=== PATIENT | female | born 1930 | race Caucasian/White ===

== ENCOUNTER 2018-01-27 13:52 | Inpatient (IN) | payer OTHER, MEDICARE ==
[~2018-01-27] VITALS: Ht 167.6 cm; Wt 63.6 kg
[~2018-01-27 13:52] MED LIST: FLUOXETINE HCL40 M1 PO; OXYCODONE HCL5 M1 PO; TRAZODONE HCL50 M1 PO; VESICARE5 M1 PO; XARELTO20 M2 PO
--- NOTE | 2018-01-27 14:38 | ED MVC/FALL/TRAUMA COMPLAINT ---
See Addendum History of Present Illness General Chief Complaint: General Adult Stated Complaint: BIBA MULTI COMPLIANTS Source: patient Exam Limitations: no limitations Allergies Coded Allergies: NO KNOWN ALLERGIES (06/03/12) Reconcile Medications Fluoxetine HCl 40 MG CAPSULE 1 CAP PO QAM MENTAL HEALTH (Reported) Oxycodone HCl 5 MG TABLET 1 TAB PO BIDP PRN PAIN (Reported) Rivaroxaban (Xarelto) 20 MG TABLET 1 TAB PO QPM BLOOD THINNER (Reported) with food Solifenacin Succinate (Vesicare) 5 MG TABLET 1 TAB PO DAILY BLADDER (Reported ) Trazodone HCl 50 MG TABLET 2 TAB PO QPM SLEEP (Reported) Triage Nurses Notes Reviewed? yes Onset: Abrupt Duration: hour(s): Timing: single episode today Severity: mild, moderate Injuries/Fall Location: lower extremity Method of Injury: fall Loss of Consciousness: unsure No Modifying Factors: none LMP (ages 10-50): post menopausal : No Patient currently breastfeeds: No HPI: 87-year-old female past medical history of atrial fibrillation on anticoagulation, chronic back pain presents for evaluation after a fall. Patient states that she got up from bed today and that her knees became very weak causing her to fall. She is unsure if she lost conscious. She landed on the ground. She is unable to get up. She reports pain in her left foot and ankle. She had her life alert button. When EMS arrived she was found on the ground by her bed. No chest pain or shortness of breath. No nausea vomiting sweats or chills no dizziness or lightheadedness no changes in vision. No fevers. She lives at home by herself. She normally is able to ambulate on her own. (Burt Alvarez) Vital Signs & Intake/Output Vital Signs & Intake/Output Vital Signs Date Time Temp Pulse Resp B/P B/P Pulse O2 O2 Flow FiO2 Mean Ox Delivery Rate 01/27 2206 98.0 66 16 106/51 95 Room Air 01/28 2008 103 101/62 01/28 2008 103 16 101/62 94 Room Air 01/27 1812 122 107/66 01/27 1703 98.4 122 18 107/66 96 Room Air 01/27 1509 Room Air 01/27 1415 99.3 105 22 118/73 94 Room Air (Genoveva FRANZ,Gareth Araujo) Past History Medical History Any Pertinent Medical History? see below for history Cardiovascular: AFIB Musculoskeletal: SPINE FX History of MRSA: No History of VRE: No History of CDIFF: No Surgical History Surgical History: non-contributory Psychosocial History Who do you live with Spouse Services at Home None What is your primary language Spanish Family History Hx Contributory? No (Burt Alvarez) Review of Systems Review of Systems Constitutional: Reports: no symptoms. Eyes: Reports: no symptoms. Ears, Nose, Throat, Mouth: Reports: no symptoms. Respiratory: Reports: no symptoms. Cardiovascular: Reports: no symptoms. Gastrointestinal/Abdominal: Reports: no symptoms. Genitourinary: Reports: no symptoms. Musculoskeletal: Reports: joint pain, joint swelling. Skin: Reports: no symptoms. Neurological/Psychological: Reports: no symptoms. All Other Systems: Reviewed and Negative (Burt Alvarez) Physical Exam Physical Exam General Appearance: well developed/nourished, no apparent distress, alert, awake Head: atraumatic, normal appearance Eyes: Bilateral: normal appearance, PERRL, EOMI, normal inspection. Ears, Nose, Throat, Mouth: hearing grossly normal, moist mucous membrane, Tympanic normal Neck: normal inspection, supple, full range of motion Respiratory: normal breath sounds, chest non-tender, no respiratory distress, lungs clear Cardiovascular: regular rate/rhythm, normal peripheral pulses Peripheral Pulses: 2+ radial (R), 2+ radial (L), 2+ tibialis posterior (R), 2+ tibialis posterior ( L), 2+ dorsalis pedis (R), 2+ dorsalis pedis (L) Gastrointestinal: normal bowel sounds, soft, non-tender, no organomegaly Back: normal inspection, normal range of motion, no vertebral tenderness Extremities: normal range of motion, TTHERE IS TENDERNESS PALPATION OF THE DORSUM OF THE LEFT FOOT AND LATERAL ASPECT OF THE LEFT ANKLE. nO SOFT TISSUE SWELLING NO BRUISING OR ABRASIONS. nEUROVASCULAR SUPPLY INTACT Neurologic/Psych: no motor/sensory deficits, awake, alert, oriented x 3, normal gait Skin: intact, normal color, warm/dry Core Measures ACS in differential dx? Yes CVA/TIA Diagnosis No Sepsis Present: No Sepsis Focused Exam Completed? No (Burt Alvarez) Progress Differential Diagnosis: C/T/L spine injury, ext injury, spinal cord injury Diagnostic Imaging: Viewed by Me: Radiology Read, CT Scan. Discussed w/RAD: Radiology Read, CT Scan. Radiology Impression: PATIENT: DANNA MADRID PRESENT AGE: 87 PATIENT ACCOUNT NO: [id number] : [birth year] LOCATION: [facility] ORDERING PHYSICIAN: Burt BROOKS SERVICE DATE: 01/27/18 EXAM TYPE: CAT - CT CERV SPINE WO IV CONTRAST; CT HEAD WO IV CONTRAST EXAMINATION: CT HEAD WITHOUT CONTRAST CT CERVICAL SPINE WITHOUT CONTRAST CLINICAL INFORMATION: Trauma. Fall with unknown head strike. COMPARISON: None TECHNIQUE: CT of the head and cervical spine were performed without intravenous contrast. Multiplanar reformats were rendered and reviewed. DLP: 888 mGy-cm. FINDINGS: CT head: There is no intracranial hemorrhage, extra-axial collection, or calvarial fracture. There is no mass, mass effect, or CT evidence of large territory infarction. There is mild scattered hypoattenuation in the bilateral cerebral white matter, which is nonspecific but likely reflects small vessel disease. There is mild diffuse brain parenchymal volume loss with prominence of the ventricles and sulci. The visualized paranasal sinuses are clear. The mastoids and middle ear cavities are clear. CT cervical spine: There is grade 1 anterolisthesis of C2 on C3 with alignment otherwise maintained. The craniovertebral junction is intact. No cervical spine fracture is seen. There is multilevel intervertebral disc height loss, endplate spurring, and uncovertebral and facet arthropathy. Disc height loss is greatest at C4-C5, C5-C6, and C6-C7. There is a prominent disc osteophyte complex at C5-C6 which results in mild spinal canal stenosis. There is severe neural foraminal stenosis on the left at C4-C5 and on the right at C5- C6 with lesser stenosis present at additional levels. There is pleural- parenchymal thickening at the bilateral lung apices and mild interlobular septal thickening. There is no consolidation or mass. There is scattered air within the venous circulation which is likely related to venipuncture. The extraspinal soft tissues are within normal limits. IMPRESSION: CT head: No acute intracranial abnormality. CT cervical spine: No cervical spine fracture, malalignment. Multilevel degenerative spondylotic changes as above. DICTATED BY: Shantanu Devi MD DATE/TIME DICTATED:01/27/181508 HEAD START TEACHER:GIA DATE/TIME TRANSCRIBED:01/27/181508 CONFIDENTIAL, DO NOT COPY WITHOUT APPROPRIATE AUTHORIZATION. <Electronically signed in Other Vendor System> SIGNED BY: Shantanu Devi MD 01/27/181523, PATIENT: DANNA MADRID PRESENT AGE: 87 PATIENT ACCOUNT NO: [id number] : [birth year] LOCATION: [facility] ORDERING PHYSICIAN: Burt BROOKS SERVICE DATE: 01/27/18 EXAM TYPE: RAD - XRY-FOOT COMPLETE, LEFT; XRY-TWO VIEW LEFT ANKLE EXAMINATION: LEFT FOOT AND ANKLE RADIOGRAPHS CLINICAL INFORMATION: 87-year-old woman with pain post fall. COMPARISON: 07/28/2016 radiographs TECHNIQUE: 2 views of the ankle and 3 views of the foot were obtained. FINDINGS: Ankle: There is no evidence of acute fracture. Alignment remains anatomic. Foot: There is no evidence of acute fracture. Alignment remains anatomic. There is degenerative chronic loss of normal articular cartilage space at the second through fifth PIP and DIP joints. IMPRESSION: No evidence of acute fracture or dislocation involving the left ankle or foot. DICTATED BY: Adele Andres MD DATE/TIME DICTATED:01/27/181520 HEAD START TEACHER:GIA DATE/TIME TRANSCRIBED:01/27/181520 CONFIDENTIAL, DO NOT COPY WITHOUT APPROPRIATE AUTHORIZATION. <Electronically signed in Other Vendor System> SIGNED BY: Adele Andres MD 01/27/181526, PATIENT: DANNA MADRID PRESENT AGE: 87 PATIENT ACCOUNT NO: [id number] : [birth year] LOCATION: [facility] ORDERING PHYSICIAN: Burt BROOKS SERVICE DATE: 01/27/18 EXAM TYPE: CAT - CT ABD & PELVIS W/O IV CONTRAS; CT CHEST WO IV CONTRAST EXAMINATION: CT ABDOMEN AND PELVIS WITHOUT CONTRAST CLINICAL INFORMATION: Fall with thoracic back pain. COMPARISON: CT of the abdomen and pelvis 05/07/2014. TECHNIQUE: Multidetector volumetric imaging was performed from the superior aspect of the liver through the pubic symphysis. Sagittal and coronal reformatted images were obtained on the technologist's workstation. DLP: 353 mGy-cm FINDINGS: LUNG/PLEURA: The central airways are patent. There is no consolidation or mass. No suspicious pulmonary nodules are seen. There is pleural-parenchymal thickening at the lung apices. No pleural effusion or pneumothorax. There are chronic interstitial changes in the right upper lobe and right middle lobe noting bronchiolectasis and prominent interstitial markings. There is subsegmental atelectasis at both lung bases and mild lower lobe bronchiolectasis. A few nonspecific scattered groundglass opacities are also noted. MEDIASTINUM: The heart is mildly enlarged. No suspicious hilar or mediastinal lymphadenopathy. CHEST WALL/AXILLA: Unremarkable. LIVER, GALLBLADDER , AND BILIARY TREE: The liver is normal in size, shape, and attenuation. No focal hepatic lesion or biliary ductal dilatation is present. Gallbladder is contracted. No inflammatory pericholecystic changes are seen. PANCREAS: Unremarkable. SPLEEN: Unremarkable. ADRENAL GLANDS: Unremarkable. KIDNEYS AND URETERS: The kidneys are normal in size, shape, and attenuation. The previously suspected renal cysts are not well defined. No hydronephrosis, hydroureter, or calculi seen. No perinephric stranding. BLADDER: Unremarkable. GASTROINTESTINAL TRACT: The small and large bowel are unremarkable. The appendix is not well seen but there are no inflammatory changes in the right lower quadrant. ABDOMINAL WALL: There is a small fat and bowel-containing [place] ventral abdominal hernia. There is a surgical scar in the midline ventral abdomen. LYMPH NODES: Normal. VASCULAR: Atheromatous changes in the abdominal aorta and its branch vessels. There are surgical clips in the right periaortic region. And in the right inguinal region. PELVIC VISCERA: Status post hysterectomy. No pelvic mass. OSSEOUS STRUCTURES: There is a chronic appearing severe compression fracture at T9 with greater than 80% height loss and mild retropulsion of the osseous cortex causing mild encroachment on the spinal canal. There is a vacuum disc at the levels above and below the fracture at T8-T9 and T9-T10. An additional chronic appearing compression fracture is present at T12 with 60% height loss and mild retropulsion causing mild encroachment on the spinal canal. No acute appearing compression fracture is seen in the thoracic or lumbar spine. There is a healed right sided lateral fifth rib fracture. IMPRESSION: - No acute thoracic spine fracture. - Chronic appearing fracture at T9 with greater than 80% height loss and at T12 with 60% height loss. There is mild retropulsion at both levels causing mild encroachment on the spinal canal. - No acute traumatic abnormality in the chest, abdomen, or pelvis. DICTATED BY: Shantanu Devi MD DATE/TIME DICTATED:01/27/181519 HEAD START TEACHER:GIA DATE/TIME TRANSCRIBED:1519 CONFIDENTIAL, DO NOT COPY WITHOUT APPROPRIATE AUTHORIZATION. < Electronically signed in Other Vendor System> SIGNED BY: Shantanu Devi MD 01/27/18 1536 Initial ED EKG: AFIB (rate 125, pvcs), borderline t wave abn ant-leads (Ryan BROOKS,Burt) Plan of Care: Orders Procedure Date/time Status Regular Diet 01/28 B Active CBC WITHOUT DIFFERENTIAL 01/28 06 Active BASIC ELECTROLYTES PLUS BUN&CR 01/28 06 Active PT Evaluate & Treat 01/28 2140 Active Pathway - chart 01/28 2140 Active House Staff 01/27 214 Active Add-on Test (ER Only) 01/27 2114 Active OXYGEN SETUP (GEN) 01/27 1929 Active Saline Lock 01/27 1929 Active Admit to inpatient 01/27 192 Active Vital Signs 01/27 192 Active Activity/Ambulation 01/27 192 Active Code Status 01/27 192 Active Add-on Test (ER Only) 01/27 192 Active Intake & Output 01/27 1910 Active TROPONIN LEVEL 01/27 1820 Complete EKG 01/27 1820 Active BLOOD CULTURE 01/27 1818 Active Add-on Test (ER Only) 01/27 1753 Active Add-on Test (ER Only) 01/27 1751 Active CASE MANAGEMENT CONSULT 01/27 1748 Active Add-on Test (ER Only) 01/27 1722 Active CULTURE,URINE 01/27 1715 Active Patient Data 01/27 1644 Active Telemetry/Vice President Quality Assurance 01/27 1606 Active TSH REFLEX 01/27 1425 Complete MAGNESIUM 01/27 1425 Complete D-DIMER 01/27 1425 Complete CREATINE PHOSPHOKINASE 01/27 1425 Complete B-TYPE NATRIURETIC PEP (BNP) 01/27 1425 Complete URINALYSIS 01/27 1414 Complete TROPONIN LEVEL 01/27 1414 Complete COMPREHENSIVE METABOLIC PANEL 01/27 1414 Complete CBC WITHOUT DIFFERENTIAL 01/27 1414 Complete EKG 01/27 1406 Active VTE Mechanical Prophylaxis 01/27 UNK Active NIH Stroke Scale 01/27 UNK Active Intake & Output 01/27 UNK Active Laboratory Tests 01/27/18 1815: Troponin I 0.02 01/27/18 171: Urine Color YEL, Urine Clarity CLEAR, Urine pH 6.5, Ur Specific [place] 1.020, Urine Protein TRACE H, Urine Ketones NEG, Urine Nitrite NEG, Urine Bilirubin NEG, Urine Urobilinogen 1.0, Ur Leukocyte Esterase TRACE H, Ur Microscopic SEDIMENT EXAMINED, Urine WBC 10-15 H, Ur Epithelial Cells FEW, Urine Bacteria FEW H, Urine Mucus MANY H, Urine Hemoglobin NEG, Urine Glucose NEG 01/27/18 1425: Anion Gap 12, Estimated GFR > 60, BUN/Creatinine Ratio 30.0 H, Glucose 111 H, Calcium 8.9, Magnesium 1.9, Total Bilirubin 1.4 H, AST 22, ALT 22, Alkaline Phosphatase 69, Creatine Kinase < 20 L, Troponin I 0.03, Qfv-[id number]-Kmwornanjsr Pept 5000 H, Total Protein 6.4, Albumin 3.7, Globulin 2.7, Albumin/Globulin Ratio 1.4, TSH &T3 &Free T4 Intrp 1.130, D-Dimer High Sensitivty 1747 H, CBC w Diff MAN DIFF ORDERED, RBC 4.22, MCV 98.7, MCH 32.2 H, MCHC 32.7 L, RDW 20.8 H, MPV 7.9, Gran % 82.0 H, Lymphocytes % 11.4 L, Monocytes % 6.2, Eosinophils % 0 , Basophils % 0.4, Absolute Granulocytes 11.0 H, Segmented Neutrophils 72, Band Neutrophils 7 H, Absolute Lymphocytes 1.5, Lymphocytes 11 L, Monocytes 10 H, Absolute Monocytes 0.8 H, Absolute Eosinophils 0, Absolute Basophils 0.1, Platelet Estimate INCREASED, Polychromasia 1+, Basophilic Stippling 1+, Anisocytosis 2+, Stomatocytes 1+ Microbiology 01/27 1905 BLOOD: Blood Culture - RECD 01/27 1855 BLOOD: Blood Culture - RECD 01/27 171 URINE ROUT: Urine Culture - RECD Patient seen and evaluated. She is here after a fall. Her legs became weak when she got out of bed causing her to fall to the ground. She is anticoagulated. We'll check CT scan of the head neck chest abdomen pelvis. Also check x-rays of the left foot and ankle. Patient is tachycardic to the low 100s in H of fibrillation. She is antegrade related but is not rate controlled. She does not have any medications that she uses for her rate control. She is not seen a roof bolter operator in years according to family. Metoprolol 25 mg by mouth Ordered. CT scan does not show any acute trauma. X-rays negative for fracture. Patient was admitted in the emergency department and did not have a steady gait. She is able to walk on her own without any difficulty however she required to be related to the bathroom. She reports pain in her left foot and ankle. She will require physical therapy in case management evaluation of this. Blood work shows a white blood cell count of 13.4 with bandemia. Urine is showing some signs of infection cultures ordered. Patient covered with ceftriaxone. Patient remains tachycardic despite oral metoprolol. 5 mg of IV metoprolol ordered. Troponin is negative. Patient does not seem have a history of tachycardia and she is not on any rate control meds. She's also been showing some low oxygen saturations of 91-92%. She does not have any history of COPD. A d-dimer was added onto assessed for PE. D-dimer was positive. CTA ordered. Patient was admitted to telemetry by Dr. Nettles. CTA still pending at the time of admission. (Burt Alvarez) (Genoveva FRANZ,Gareth Araujo) Departure Departure Disposition: STILL A PATIENT Condition: Stable Clinical Impression Primary Impression: Atrial fibrillation with rapid ventricular response Secondary Impressions: Gait instability UTI (urinary tract infection) Qualifiers: Urinary tract infection type: acute cystitis Hematuria presence: without hematuria Qualified Code: N30.00 - Acute cystitis without hematuria Referrals: Bandar Rosales MD (PCP/Family) Departure Forms: Customer Survey General Discharge Information Admission Note Spoke With: Nadir FRANZ,Sofya Documentation of Exam: Documentation of any treatments & extenuating circumstances including Concerns Regarding Discharge (functional status, medication knowledge or non-compliance, living conditions, etc.) that warrant an admission rather than observation: [ CardS consult, telemetry, serial labs, serial EKGs, follow-up cultures, echocardiogram, IV antibiotics, physical therapy, case management] (Burt Alvarez) PA/SUPERINTENDENT RECREATION Co-Sign Statement Statement: ED Attending supervision documentation- [x] I saw and evaluated the patient. I have also reviewed all the pertinent lab results and diagnostic results. I agree with the findings and the plan of care as documented in the PA's/SUPERINTENDENT RECREATION's documentation. Patient presents for evaluation of generalized weakness and difficulty ambulating. Physical examination reveals a rapid irregular tachycardia and a nonfocal neurologic examination. [X] I have reviewed the ED Record and agree with the PA's/SUPERINTENDENT RECREATION's documentation. [] Additions or exceptions (if any) to the PAs/SUPERINTENDENT RECREATION's note and plan are summarized below: [] (Genoveva FRANZ,Gareth Araujo) PA/SUPERINTENDENT RECREATION Co-Sign Statement Statement: ED Attending supervision documentation- x I saw and evaluated the patient. I have also reviewed all the pertinent lab results and diagnostic results. I agree with the findings and the plan of care as documented in the PA's/SUPERINTENDENT RECREATION's documentation. Fall, weakness, rapid afib improved with metoprolol. [] I have reviewed the ED Record and agree with the PA's/SUPERINTENDENT RECREATION's documentation. [] Additions or exceptions (if any) to the PAs/SUPERINTENDENT RECREATION's note and plan are summarized below: [] (Margarita FRANZ,George)
[2018-01-27 14:47] LABS: ABSOLUTE BASOPHIL COUNT 0.1 /CUMM (0.0-0.2); ABSOLUTE EOSINOPHIL COUNT 0 /CUMM (0.0-0.7); ABSOLUTE LYMPH COUNT 1.5 /CUMM (1.2-3.4); ABSOLUTE MONOCYTE COUNT 0.8 /CUMM (0.10-0.60); BASOPHIL % 0.4 % (0.0-2.0); EOSINOPHIL % 0 % (0-5); HEMATOCRIT 41.6 % (37-47); MEAN CORPUSCULAR HGB 32.2 PG (27.0-31.0); MEAN CORPUSCULAR HGB CONC 32.7 G/DL (33.0-37.0); MEAN CORPUSCULAR VOLUME 98.7 FL (81.0-99.0); MEAN PLATELET VOLUME 7.9 FL (7.4-10.4); RBC DISTRIBUTION WIDTH 20.8 % (11.5-14.5); RED BLOOD CELL CT 4.22 /CUMM (4.20-5.40); WHITE BLOOD CELL COUNT 13.4 /CUMM (4.8-10.8)
[2018-01-27 14:57] LABS: PLATELET COUNT 924 /CUMM (130-400)
--- NOTE | 2018-01-27 15:24 | CT SCAN REPORT ---
EXAMINATION: CT HEAD WITHOUT CONTRAST CT CERVICAL SPINE WITHOUT CONTRAST CLINICAL INFORMATION: Trauma. Fall with unknown head strike. COMPARISON: None TECHNIQUE: CT of the head and cervical spine were performed without intravenous contrast. Multiplanar reformats were rendered and reviewed. DLP: 888 mGy-cm. FINDINGS: CT head: There is no intracranial hemorrhage, extra-axial collection, or calvarial fracture. There is no mass, mass effect, or CT evidence of large territory infarction. There is mild scattered hypoattenuation in the bilateral cerebral white matter, which is nonspecific but likely reflects small vessel disease. There is mild diffuse brain parenchymal volume loss with prominence of the ventricles and sulci. The visualized paranasal sinuses are clear. The mastoids and middle ear cavities are clear. CT cervical spine: There is grade 1 anterolisthesis of C2 on C3 with alignment otherwise maintained. The craniovertebral junction is intact. No cervical spine fracture is seen. There is multilevel intervertebral disc height loss, endplate spurring, and uncovertebral and facet arthropathy. Disc height loss is greatest at C4-C5, C5-C6, and C6-C7. There is a prominent disc osteophyte complex at C5-C6 which results in mild spinal canal stenosis. There is severe neural foraminal stenosis on the left at C4-C5 and on the right at C5-C6 with lesser stenosis present at additional levels. There is pleural-parenchymal thickening at the bilateral lung apices and mild interlobular septal thickening. There is no consolidation or mass. There is scattered air within the venous circulation which is likely related to venipuncture. The extraspinal soft tissues are within normal limits. IMPRESSION: CT head: No acute intracranial abnormality. CT cervical spine: No cervical spine fracture, malalignment. Multilevel degenerative spondylotic changes as above.
--- NOTE | 2018-01-27 15:27 | RADIOLOGY REPORT ---
EXAMINATION: LEFT FOOT AND ANKLE RADIOGRAPHS CLINICAL INFORMATION: 87-year-old woman with pain post fall. COMPARISON: 07/28/2016 radiographs TECHNIQUE: 2 views of the ankle and 3 views of the foot were obtained. FINDINGS: Ankle: There is no evidence of acute fracture. Alignment remains anatomic. Foot: There is no evidence of acute fracture. Alignment remains anatomic. There is degenerative chronic loss of normal articular cartilage space at the second through fifth PIP and DIP joints. IMPRESSION: No evidence of acute fracture or dislocation involving the left ankle or foot.
--- NOTE | 2018-01-27 15:36 | CT SCAN REPORT ---
EXAMINATION: CT ABDOMEN AND PELVIS WITHOUT CONTRAST CLINICAL INFORMATION: Fall with thoracic back pain. COMPARISON: CT of the abdomen and pelvis 05/07/2014. TECHNIQUE: Multidetector volumetric imaging was performed from the superior aspect of the liver through the pubic symphysis. Sagittal and coronal reformatted images were obtained on the technologist's workstation. DLP: 353 mGy-cm FINDINGS: LUNG/PLEURA: The central airways are patent. There is no consolidation or mass. No suspicious pulmonary nodules are seen. There is pleural-parenchymal thickening at the lung apices. No pleural effusion or pneumothorax. There are chronic interstitial changes in the right upper lobe and right middle lobe noting bronchiolectasis and prominent interstitial markings. There is subsegmental atelectasis at both lung bases and mild lower lobe bronchiolectasis. A few nonspecific scattered groundglass opacities are also noted. MEDIASTINUM: The heart is mildly enlarged. No suspicious hilar or mediastinal lymphadenopathy. CHEST WALL/AXILLA: Unremarkable. LIVER, GALLBLADDER, AND BILIARY TREE: The liver is normal in size, shape, and attenuation. No focal hepatic lesion or biliary ductal dilatation is present. Gallbladder is contracted. No inflammatory pericholecystic changes are seen. PANCREAS: Unremarkable. SPLEEN: Unremarkable. ADRENAL GLANDS: Unremarkable. KIDNEYS AND URETERS: The kidneys are normal in size, shape, and attenuation. The previously suspected renal cysts are not well defined. No hydronephrosis, hydroureter, or calculi seen. No perinephric stranding. BLADDER: Unremarkable. GASTROINTESTINAL TRACT: The small and large bowel are unremarkable. The appendix is not well seen but there are no inflammatory changes in the right lower quadrant. ABDOMINAL WALL: There is a small fat and bowel-containing [place] ventral abdominal hernia. There is a surgical scar in the midline ventral abdomen. LYMPH NODES: Normal. VASCULAR: Atheromatous changes in the abdominal aorta and its branch vessels. There are surgical clips in the right periaortic region. And in the right inguinal region. PELVIC VISCERA: Status post hysterectomy. No pelvic mass. OSSEOUS STRUCTURES: There is a chronic appearing severe compression fracture at T9 with greater than 80% height loss and mild retropulsion of the osseous cortex causing mild encroachment on the spinal canal. There is a vacuum disc at the levels above and below the fracture at T8-T9 and T9-T10. An additional chronic appearing compression fracture is present at T12 with 60% height loss and mild retropulsion causing mild encroachment on the spinal canal. No acute appearing compression fracture is seen in the thoracic or lumbar spine. There is a healed right sided lateral fifth rib fracture. IMPRESSION: - No acute thoracic spine fracture. - Chronic appearing fracture at T9 with greater than 80% height loss and at T12 with 60% height loss. There is mild retropulsion at both levels causing mild encroachment on the spinal canal. - No acute traumatic abnormality in the chest, abdomen, or pelvis.
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
--- NOTE | 2018-01-27 21:27 | CT SCAN REPORT ---
EXAMINATION: CT ANGIOGRAM OF THE CHEST WITH AND WITHOUT CONTRAST (CT PULMONARY ANGIOGRAM FOR PE) CLINICAL INFORMATION: 87-year-old woman with hypoxia. COMPARISON: 01/27/[address] TECHNIQUE: Prior to contrast administration, noncontrast localization images were obtained. Subsequently, multidetector volumetric imaging was performed from the thoracic inlet to below the diaphragms following the administration of 95 mL Optiray 320 intravenous contrast. No contrast reaction reported. Sagittal, coronal, and MIP oblique sagittal reformatted images were obtained on the CT workstation, uploaded to PACS, and reviewed. Total exam dose-length product 281 mGy-cm. FINDINGS: QUALITY OF STUDY/CONTRAST BOLUS: Satisfactory PULMONARY ARTERIES: No central or segmental pulmonary emboli. LUNG: Dependent atelectatic changes are noted at the left lung base. Multifocal subpleural reticular opacities are seen including in the right middle lobe. PLEURA: No pleural effusion or pneumothorax. MEDIASTINUM: Normal heart size. No pericardial effusion. No hilar or mediastinal lymphadenopathy. CHEST WALL/AXILLA: No axillary or internal mammary lymphadenopathy. OSSEOUS STRUCTURES: Note is again made of T9 and T12 vertebral compression fractures. UPPER ABDOMEN: Unremarkable. IMPRESSION: No CT evidence of acute or chronic pulmonary emboli.
[2018-01-27 23:16] VITALS: BP 130/60
--- NOTE | 2018-01-27 23:45 | Admission Certification ---
Admission Certification Certification Statement - As attending physician, I certify that at the time of - admission, based on clinical presentation, severity of - symptoms, need for further diagnostic testing and - therapeutic interventions, and risk of adverse outcomes - without in-hospital treatment, in my clinical assessment, - this patient requires an acute hospital stay for a minimum - of two nights or longer. I have also considered psychsocial - factors such as support system, advanced age, financial - issues, cognitive issues, and failed out-patient treatments, - past re-admission history, safety of patient, and lack of - compliance as applicable. Specific rationale supporting this admission is: Fall, atrial fibrillation with rapid ventricular response.
[2018-01-28] VITALS: BP 130/60
[2018-01-28 06:30] VITALS: BP 128/68
--- NOTE | 2018-01-28 08:21 | PN- Housestaff ---
See Addendum Subjective Follow-up For: Fall Tele-Events Since Last Visit: NSR with HR 61-79. No overnight events. Subjective: Patient was seen and examined at bedside. She reports feeling well. Has no complaints. States she fell down yesterday after her knees gave away. Denies prior similar episodes. Review of Systems Constitutional: Reports: no symptoms. Objective Last 24 Hrs of Vital Signs/I&O Vital Signs Date Time Temp Pulse Resp B/P B/P Pulse O2 O2 Flow FiO2 Mean Ox Delivery Rate 01/28 0630 98.0 62 20 128/68 94 01/28 0000 97.7 79 18 130/60 94 01/27 2316 97.7 79 18 130/60 94 Room Air 01/27 2206 98.0 66 16 106/51 95 Room Air 01/28 2008 103 101/62 01/28 2008 103 16 101/62 94 Room Air 01/27 1812 122 107/66 01/27 1703 98.4 122 18 107/66 96 Room Air 01/27 1509 Room Air 01/27 1415 99.3 105 22 118/73 94 Room Air Intake & Output 01/28 1600 01/28 0800 01/28 0000 Intake Total 120 1000 Output Total 400 Balance -280 1000 Intake, IV 1000 Intake, Oral 120 Output, Urine 400 Patient 133 lb Weight Weight Bed scale Measurement Method Physical Exam General Appearance: Alert, Oriented X3, Cooperative, No Acute Distress Skin: No Rashes, No Breakdown Skin Temp/Moisture Exam: Warm/Dry Sepsis Skin Exam (color): Normal for Ethnicity HEENT: Atraumatic Cardiovascular: Normal S1, Normal S2, RENEE Lungs: Normal Air Movement Abdomen: Soft, No Tenderness Neurological: Normal Speech Extremities: No Edema Last 24 Hrs of Lab/Nolan Results Last 24 Hrs of Labs/Mics: Laboratory Tests 01/28/18 0710: Anion Gap 9, Estimated GFR > 60, BUN/Creatinine Ratio 32.0 H, CBC w Diff MAN DIFF ORDERED, RBC 3.55 L, MCV 99.4 H, MCH 32.7 H, MCHC 32.9 L, RDW 21.5 H, MPV 8.0, Gran % 83.1 H, Lymphocytes % 13.0 L, Monocytes % 3.7, Eosinophils % 0 , Basophils % 0.2, Absolute Granulocytes 7.8 H, Segmented Neutrophils 78 H, Band Neutrophils 7 H, Absolute Lymphocytes 1.2, Lymphocytes 11 L, Monocytes 3, Absolute Monocytes 0.4, Absolute Eosinophils 0, Absolute Basophils 0, Metamyelocytes 1, Nucleated RBCs 1 H, Platelet Estimate INCREASED, Polychromasia 1+, Basophilic Stippling 1+, Anisocytosis 2+, Stomatocytes 1+ 01/28/18 0018: Troponin I 0.03 01/27/18 1815: Troponin I 0.02 01/27/18 1715: Urine Color YEL, Urine Clarity CLEAR, Urine pH 6.5, Ur Specific [place] 1.020, Urine Protein TRACE H, Urine Ketones NEG, Urine Nitrite NEG, Urine Bilirubin NEG, Urine Urobilinogen 1.0, Ur Leukocyte Esterase TRACE H, Ur Microscopic SEDIMENT EXAMINED, Urine WBC 10-15 H, Ur Epithelial Cells FEW, Urine Bacteria FEW H, Urine Mucus MANY H, Urine Hemoglobin NEG, Urine Glucose NEG 01/27/18 1425: Anion Gap 12, Estimated GFR > 60, BUN/Creatinine Ratio 30.0 H, Glucose 111 H, Calcium 8.9, Magnesium 1.9, Total Bilirubin 1.4 H, AST 22, ALT 22, Alkaline Phosphatase 69, Creatine Kinase < 20 L, Troponin I 0.03, Fxy-M-Mdixmlskakv Pept 5000 H, Total Protein 6.4, Albumin 3.7, Globulin 2.7, Albumin/Globulin Ratio 1.4, Vitamin B12 > 1000 H, Free T4 1.37, Total T3 1.45, TSH &T3 &Free T4 Intrp 1.130, D-Dimer High Sensitivty 1747 H, CBC w Diff MAN DIFF ORDERED, RBC 4.22, MCV 98.7, MCH 32.2 H, MCHC 32.7 L, RDW 20.8 H, MPV 7.9, Gran % 82.0 H, Lymphocytes % 11.4 L, Monocytes % 6.2, Eosinophils % 0, Basophils % 0.4, Absolute Granulocytes 11.0 H, Segmented Neutrophils 72, Band Neutrophils 7 H, Absolute Lymphocytes 1.5, Lymphocytes 11 L, Monocytes 10 H, Absolute Monocytes 0.8 H, Absolute Eosinophils 0, Absolute Basophils 0.1, Platelet Estimate INCREASED, Polychromasia 1+, Basophilic Stippling 1+, Anisocytosis 2+, Stomatocytes 1+ Microbiology 01/27 1905 BLOOD: Blood Culture - RECD 01/27 1855 BLOOD: Blood Culture - RECD 01/27 1711 URINE ROUT: Urine Culture - RES Assessment/Plan Assessment: 87 years old female with past medical history of A. fib on Xarelto, hyperlipidemia, fibromyalgia, depression, hearing impairment. Was BIBA for evaluation after falling down. When the patient arrived to the ED she was found to have A. fib with RVR, heart rate was in the 120, she received metoprolol 25 p.o. and 5 mg IV after which she converted to NSR Assessment: 1. Fall 2. A.fib with conversion to NSR 3. Elevated proBNP Plan: * Continue monitoring on telemetry overnight. * She has maintained her sinus rhythm * Will start her on Metoprolol 12.5mg BID and uptitrate as tolerated and if needed. * Continue Xarelto * Her trops were negative. * Cardiology recs appreciated * TFTs were normal * Will check Vit d levels * Echo - pending * Her UA is not convincing of a UTI. She is asymptomatic. Will hennessy off abx for now. * PT recommends STR * Diet: Regular * DVT Prophylaxis: on Xarelto * Code: Full Code Problem List: 1. ATRIAL FIBRILATION Pain Ratin Pain Location: none Pain Goal: Remain pain free Pain Plan: none Tomorrow's Labs & Rationales: CBC, BEP
[2018-01-28 08:45] LABS: ABSOLUTE BASOPHIL COUNT 0 /CUMM (0.0-0.2); ABSOLUTE EOSINOPHIL COUNT 0 /CUMM (0.0-0.7); ABSOLUTE GRANULOCYTE CT 7.8 /CUMM (1.4-6.5); ABSOLUTE LYMPH COUNT 1.2 /CUMM (1.2-3.4); ABSOLUTE MONOCYTE COUNT 0.4 /CUMM (0.10-0.60); BASOPHIL % 0.2 % (0.0-2.0); EOSINOPHIL % 0 % (0-5); GRANULOCYTE % 83.1 % (42.2-75.2); MEAN CORPUSCULAR HGB 32.7 PG (27.0-31.0); MEAN CORPUSCULAR HGB CONC 32.9 G/DL (33.0-37.0); MEAN CORPUSCULAR VOLUME 99.4 FL (81.0-99.0); PLATELET COUNT 774 /CUMM (130-400); RBC DISTRIBUTION WIDTH 21.5 % (11.5-14.5); RED BLOOD CELL CT 3.55 /CUMM (4.20-5.40); WHITE BLOOD CELL COUNT 9.4 /CUMM (4.8-10.8)
[2018-01-28 09:11] LABS: HEMATOCRIT 35.3 % (37-47)
--- NOTE | 2018-01-28 11:11 | Cons- Cardiology ---
General Information and HPI Consulting Request Date of Consult: 01/28/18 Requested By: Nadir FRANZ,Sofya Reason for Consult: Atrial fibrillation Source of Information: patient, old records Exam Limitations: no limitations History of Present Illness: The patient is an 87-year-old woman with past medical history of paroxysmal atrial fibrillation (anticoagulated with Xarelto), fibromyalgia, hyperlipidemia, depression and chronic cough. She presented to our hospital following a fall, and was noted to be in atrial fibrillation with rapid ventricular response on initial presentation. The patient states that after arising from bed, she felt overall leg weakness and fell to the ground. There was no actual syncope. No prodrome of palpitations nor chest pains nor dyspnea was felt. On arrival to the emergency room, she was noted to be in atrial fibrillation with a ventricular response rate of approximately 120 bpm. Initial blood pressures were 114 systolic over 73 diastolic. Following administration of metoprolol, the patient had spontaneous conversion to normal sinus rhythm. She remained asymptomatic the standpoint of palpitations nor chest pain. The patient is subsequently ruled out for a myocardial infarction via serial troponin isoenzymes. Allergies/Medications Allergies: Coded Allergies: NO KNOWN ALLERGIES (06/03/12) Home Med List: Fluoxetine HCl 40 MG CAPSULE 1 CAP PO QAM MENTAL HEALTH (Reported) Oxycodone HCl 5 MG TABLET 1 TAB PO BIDP PRN PAIN (Reported) Rivaroxaban (Xarelto) 20 MG TABLET 1 TAB PO QPM BLOOD THINNER (Reported) with food Solifenacin Succinate (Vesicare) 5 MG TABLET 1 TAB PO DAILY BLADDER (Reported ) Trazodone HCl 50 MG TABLET 2 TAB PO QPM SLEEP (Reported) Current Medications: Current Medications Sig/Wendy Start time Last Medication Dose Route Stop Time Status Admin Acetaminophen 650 MG Q6P PRN 01/28 0030 AC PO Acetaminophen 1,000 MG Q6P PRN 01/28 0030 AC 01/28 IV 0937 Acetaminophen 0 .STK-MED ONE 01/27 1427 DC IV Acetaminophen 1,000 MG ONCE ONE 01/27 1415 DC 01/27 N/A 1 UNIT IV 01/27 1429 1431 Ceftriaxone Sodium 0 .STK-MED ONE 01/27 2147 DC .ROUTE Ceftriaxone Sodium 1,000 MG ONCE ONE 01/27 2100 DC 01/27 IV 01/27 2101 2144 Fluoxetine HCl 40 MG DAILY 01/28 0900 AC 01/28 PO 0738 Metoprolol Tartrate 0 .STK-MED ONE 01/27 2006 DC IV Metoprolol Tartrate 5 MG ONCE ONE 01/27 1930 DC 01/27 IV 01/27 1932007 Metoprolol Tartrate 0 .STK-MED ONE 01/27 1817 DC PO Metoprolol Tartrate 25 MG ONCE ONE 01/27 1800 DC / PO 01/27 1801 1812 Oxybutynin Chloride 5 MG DAILY 01/28 0900 AC 01/28 PO 0738 Oxycodone HCl 5 MG Q12P PRN 01/28 1045 AC 01/28 PO 1048 Oxycodone HCl 0 .STK-MED ONE 01/27 1751 DC PO Oxycodone HCl 5 MG ONCE ONE 01/27 1700 DC 01/27 PO 01/27 1701 1750 Polyethylene Glycol 17 GM DAILY PRN 01/28 0030 AC PO Rivaroxaban 20 MG DAILY 01/28 0900 AC 01/28 PO 0739 Sodium Chloride 1,000 ML BOLUS ONE 01/27 1700 DC 01/27 IV 01/27 1759 1750 Trazodone HCl 50 MG AT BEDTIME 01/28 2100 AC PO Review of Systems Review of Systems: The review of systems is negative for chest pains, palpitations nor lightheadedness. The remainder of the 14 point review of systems is noncontributory with the exception of above. Past History Travel History Traveled to [place] past 21 day No Medical History Blood Transfusion Hx: No Cardiovascular: AFIB Musculoskeletal: SPINE FX Surgical History Surgical History: non-contributory Psychosocial History Where Do You Live? Home Services at Home: None Smoking Status: Never Smoked Exam & Diagnostic Data Vital Signs and I&O Vital Signs Date Time Temp Pulse Resp B/P B/P Pulse O2 O2 Flow FiO2 Mean Ox Delivery Rate 01/28 0630 98.0 62 20 128/68 94 01/28 0000 97.7 79 18 130/60 94 01/27 2316 97.7 79 18 130/60 94 Room Air 01/27 2206 98.0 66 16 106/51 95 Room Air 01/28 2008 103 101/62 01/27 2008 103 16 101/62 94 Room Air 01/27 1812 122 107/66 01/27 1703 98.4 122 18 107/66 96 Room Air 01/27 1509 Room Air 01/27 1415 99.3 105 22 118/73 94 Room Air Intake & Output 01/28 1600 01/28 0800 01/28 0000 01/27 1600 01/27 0800 01/27 0000 Intake Total 120 1000 Output Total 400 Balance -280 1000 Intake, IV 1000 Intake, Oral 120 Output, Urine 400 Patient 133 lb 125 lb Weight Weight Bed scale Reported by Patient Measurement Method Physical Exam: General: Nontoxic, no apparent distress. HEENT: Sclera and conjunctiva within normal limits, without xanthelasmas. Neck: Carotids 2+ without bruits. Respiratory: Clear to auscultation, air movement is good, without accessory respiratory muscle use. Heart: Regular rate and rhythm, 2 out of 6 stock ejection murmur at left sternal border, without JVD. Abdomen: Soft, nontender, no masses, normoactive bowel sounds. Extremities: Without clubbing, cyanosis, without edema. Neuro: Nonfocal exam, strength, 5 out of 5 Skin: Within normal limits without lesions. Psych: Mood and affect: Normal Labs/Nolan Results: Laboratory Tests 01/28 01/28 01/27 0710 0018 1815 Chemistry Sodium (137 - 145 mmol/L) 139 Potassium (3.5 - 5.1 mmol/L) 4.2 Chloride (98 - 107 mmol/L) 106 Carbon Dioxide (22 - 30 mmol/L) 24 Anion Gap (5 - 16) 9 BUN (7 - 17 mg/dL) 16 Creatinine (0.5 - 1.0 mg/dL) 0.5 Estimated GFR (>60 ml/min) > 60 BUN/Creatinine Ratio (7 - 25 %) 32.0 H Troponin I (< 0.11 ng/ml) 0.03 0.02 Hematology CBC w Diff MAN DIFF ORDERED WBC (4.8 - 10.8 /CUMM) 9.4 RBC (4.20 - 5.40 /CUMM) 3.55 L Hgb (12.0 - 16.0 G/DL) 11.6 L Hct (37 - 47 %) 35.3 L MCV (81.0 - 99.0 FL) 99.4 H MCH (27.0 - 31.0 PG) 32.7 H MCHC (33.0 - 37.0 G/DL) 32.9 L RDW (11.5 - 14.5 %) 21.5 H Plt Count (130 - 400 /CUMM) 774 H MPV (7.4 - 10.4 FL) 8.0 Gran % (42.2 - 75.2 %) 83.1 H Lymphocytes % (20.5 - 51.1 %) 13.0 L Monocytes % (1.7 - 9.3 %) 3.7 Eosinophils % (0 - 5 %) 0 Basophils % (0.0 - 2.0 %) 0.2 Absolute Granulocytes (1.4 - 6.5 /CUMM) 7.8 H Segmented Neutrophils (42.2 - 75.2 %) 78 H Band Neutrophils (0.0 - 5.0 %) 7 H Absolute Lymphocytes (1.2 - 3.4 /CUMM) 1.2 Lymphocytes (20.5 - 51.1 %) 11 L Monocytes (1.7 - 9.3 %) 3 Absolute Monocytes (0.10 - 0.60 /CUMM) 0.4 Absolute Eosinophils (0.0 - 0.7 /CUMM) 0 Absolute Basophils (0.0 - 0.2 /CUMM) 0 Metamyelocytes (0.0 - 1.0 %) 1 Nucleated RBCs (0.0 - 0.0 /100WBC) 1 H Platelet Estimate (ADEQUATE) INCREASED Polychromasia 1+ Basophilic Stippling 1+ Anisocytosis 2+ Stomatocytes 1+ 01/27 1715 Urines Urine Color (YEL,AMB,STR) YEL Urine Clarity (CLEAR) CLEAR Urine pH (5.0 - 8.0) 6.5 Ur Specific Early (1.001 - 1.035) 1.020 Urine Protein (NEG,<30 MG/DL) TRACE H Urine Ketones (NEG) NEG Urine Nitrite (NEG) NEG Urine Bilirubin (NEG) NEG Urine Urobilinogen (0.1 - 1.0 EU/dl) 1.0 Ur Leukocyte Esterase (NEG) TRACE H Ur Microscopic SEDIMENT EXAMINED Urine WBC (0 - 2 /HPF) 10-15 H Ur Epithelial Cells (NONE,FEW) FEW Urine Bacteria (NEG/NONE) FEW H Urine Mucus (FEW,NONE) MANY H Urine Hemoglobin (NEG) NEG Urine Glucose (N MG/DL) NEG 01/27 1425 Chemistry Sodium (137 - 145 mmol/L) 139 Potassium (3.5 - 5.1 mmol/L) 4.8 Chloride (98 - 107 mmol/L) 102 Carbon Dioxide (22 - 30 mmol/L) 25 Anion Gap (5 - 16) 12 BUN (7 - 17 mg/dL) 15 Creatinine (0.5 - 1.0 mg/dL) 0.5 Estimated GFR (>60 ml/min) > 60 BUN/Creatinine Ratio (7 - 25 %) 30.0 H Glucose (65 - 99 mg/dL) 111 H Calcium (8.4 - 10.2 mg/dL) 8.9 Magnesium (1.6 - 2.3 mg/dL) 1.9 Total Bilirubin (0.2 - 1.3 mg/dL) 1.4 H AST (14 - 36 U/L) 22 ALT (9 - 52 U/L) 22 Alkaline Phosphatase (<127 U/L) 69 Creatine Kinase (30 - 135 U/L) < 20 L Troponin I (< 0.11 ng/ml) 0.03 [id number] Pept (<125 pg/mL) 5000 H Total Protein (6.3 - 8.2 g/dL) 6.4 Albumin (3.5 - 5.0 g/dL) 3.7 Globulin (1.9 - 4.2 gm/dL) 2.7 Albumin/Globulin Ratio (1.1 - 2.2 %) 1.4 Vitamin B12 (239 - 931 pg/mL) > 1000 H Free T4 (0.85 - 1.93 ng/dL) 1.37 Total T3 (0.97 - 1.69 ng/mL) 1.45 TSH &T3 &Free T4 Intrp (0.270 - 4.20 uIU/mL) 1.130 Coagulation D-Dimer High Sensitivty (0 - 243 ng/ml) 1747 H Hematology CBC w Diff MAN DIFF ORDERED WBC (4.8 - 10.8 /CUMM) 13.4 H RBC (4.20 - 5.40 /CUMM) 4.22 Hgb (12.0 - 16.0 G/DL) 13.6 Hct (37 - 47 %) 41.6 MCV (81.0 - 99.0 FL) 98.7 MCH (27.0 - 31.0 PG) 32.2 H MCHC (33.0 - 37.0 G/DL) 32.7 L RDW (11.5 - 14.5 %) 20.8 H Plt Count (130 - 400 /CUMM) 924 H MPV (7.4 - 10.4 FL) 7.9 Gran % (42.2 - 75.2 %) 82.0 H Lymphocytes % (20.5 - 51.1 %) 11.4 L Monocytes % (1.7 - 9.3 %) 6.2 Eosinophils % (0 - 5 %) 0 Basophils % (0.0 - 2.0 %) 0.4 Absolute Granulocytes (1.4 - 6.5 /CUMM) 11.0 H Segmented Neutrophils (42.2 - 75.2 %) 72 Band Neutrophils (0.0 - 5.0 %) 7 H Absolute Lymphocytes (1.2 - 3.4 /CUMM) 1.5 Lymphocytes (20.5 - 51.1 %) 11 L Monocytes (1.7 - 9.3 %) 10 H Absolute Monocytes (0.10 - 0.60 /CUMM) 0.8 H Absolute Eosinophils (0.0 - 0.7 /CUMM) 0 Absolute Basophils (0.0 - 0.2 /CUMM) 0.1 Platelet Estimate (ADEQUATE) INCREASED Polychromasia 1+ Basophilic Stippling 1+ Anisocytosis 2+ Stomatocytes 1+ Assessment/Plan Assessment/Plan 87-year-old woman with past medical history of paroxysmal atrial fibrillation ( anticoagulated with Xarelto), fibromyalgia, hyperlipidemia, depression and chronic cough. She presented to our hospital following a fall, and was noted to be in atrial fibrillation with rapid ventricular response on initial presentation. Atrial fibrillation: The patient had spontaneous conversion to normal sinus rhythm following administration of metoprolol, and remained asymptomatic from an arrhythmia standpoint. In regards to anticoagulation, she does not have frequent falls, and therefore maintaining full anticoagulation with her regimen of Xarelto would be preferred. We will attempt to continue and uptitrate her beta-ashlyn regimen. Leukocytosis/possible urinary tract infection: Continue to treat as per the medical team. Fall: Given the patient's use of full anticoagulation, evaluation by physical therapy prior to discharge would be beneficial. Thank you for allowing us to participate in the care of your patient. Please do not hesitate to contact us further with any questions. Sincerely, Vimal White MD [facility] Consult Acknowledgment - Thank you for your consult request.
[2018-01-28 15:02] VITALS: BP 138/62
[2018-01-28 21:19] VITALS: BP 142/68
[2018-01-29 06:27] VITALS: BP 126/54
--- NOTE | 2018-01-29 07:11 | PN- Housestaff ---
Wilmer FRANZ,[facility] 01/29/18 0711: Subjective Follow-up For: Fall Tele-Events Since Last Visit: NSR/1st degree AVB with HR 67-82. No overnight events. Subjective: patient was seen and examined at bedside. Reports doing well. Has no complaints. Wishes to go home with home physical therapy. Eager to go home. Review of Systems Constitutional: Reports: no symptoms. Objective Last 24 Hrs of Vital Signs/I&O Vital Signs Date Time Temp Pulse Resp B/P B/P Pulse O2 O2 Flow FiO2 Mean Ox Delivery Rate 01/29 0820 60 148/70 01/29 0817 60 148/70 01/29 0800 Room Air 01/29 0627 98.4 63 18 126/54 93 Room Air 01/28 2119 98.7 61 142/68 92 Room Air 01/28 2043 96 142/68 01/28 1502 98.8 65 18 138/62 94 Room Air 01/28 1252 61 136/66 Intake & Output 01/29 1600 01/29 0800 01/29 0000 Intake Total 150 400 Output Total Balance 150 400 Intake, Oral 150 400 Patient 140 lb Weight Weight Bed scale Measurement Method Physical Exam General Appearance: Alert, Oriented X3, Cooperative, No Acute Distress Skin: No Rashes, No Breakdown Skin Temp/Moisture Exam: Warm/Dry Sepsis Skin Exam (color): Normal for Ethnicity HEENT: Atraumatic Cardiovascular: Normal S1, Normal S2, No Murmurs Lungs: Clear to Auscultation, Normal Air Movement Abdomen: Soft, No Tenderness Neurological: Normal Speech Extremities: No Cyanosis, No Edema Vascular: Normal Pulses Last 24 Hrs of Lab/Nolan Results Last 24 Hrs of Labs/Mics: Laboratory Tests 01/29/18 0610: Anion Gap 7, Estimated GFR > 60, BUN/Creatinine Ratio 28.0 H, CBC w Diff NO MAN DIFF REQ, RBC 3.38 L, MCV 100.7 H, MCH 32.4 H, MCHC 32.2 L, RDW 21.5 H, MPV 8.0, Gran % 83.9 H, Lymphocytes % 12.3 L, Monocytes % 3.4, Eosinophils % 0, Basophils % 0.4, Absolute Granulocytes 8.4 H, Absolute Lymphocytes 1.2, Absolute Monocytes 0.3, Absolute Eosinophils 0, Absolute Basophils 0 Assessment/Plan Assessment: 87 years old female with past medical history of A. fib on Xarelto, hyperlipidemia, fibromyalgia, depression, hearing impairment. Was BIBA for evaluation after falling down. When the patient arrived to the ED she was found to have A. fib with RVR, heart rate was in the 120, she received metoprolol 25 p.o. and 5 mg IV after which she converted to NSR Assessment: 1. Fall 2. A.fib with conversion to NSR 3. Elevated proBNP Plan: * Stable to be discharged. * She has maintained her sinus rhythm * Will continue her on Metoprolol 12.5mg BID. * Continue Xarelto * Her trops were negative. * Cardiology recs appreciated * TFTs were normal * Echo - showed normal LV systolic dysfunction but did reveal severe pulmonary hypertension. 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 * PT recommends home physical therapy today. * Diet: Regular * DVT Prophylaxis: on Xarelto * Code: Full Code Problem List: 1. Fall Pain Ratin Pain Location: none Pain Goal: Remain pain free Pain Plan: none Tomorrow's Labs & Rationales: none Terry Oconnor 01/29/18 1051: Attending MD Review Statement Attending Statement Attending MD Statement: examined this patient, discuss w/resident/PA/FURNACE CHECKER, agreed w/resident/PA/FURNACE CHECKER, discussed with family, reviewed EMR data (avail), discussed with nursing, discussed with case mgmt, reviewed images, amended to note Attending Assessment/Plan: Patient admitted here for mechanical fall and rapid afib with RVR on xarelto at home. Cardiology consulted and recommend PT eval and continue with A/C. PT recommend discharge to home with services. Patient vital stable and medically stable for discharge. gi/dvt prophylaxis full code.
[2018-01-29 08:15] LABS: ABSOLUTE BASOPHIL COUNT 0 /CUMM (0.0-0.2); ABSOLUTE EOSINOPHIL COUNT 0 /CUMM (0.0-0.7); ABSOLUTE GRANULOCYTE CT 8.4 /CUMM (1.4-6.5); ABSOLUTE LYMPH COUNT 1.2 /CUMM (1.2-3.4); ABSOLUTE MONOCYTE COUNT 0.3 /CUMM (0.10-0.60); BASOPHIL % 0.4 % (0.0-2.0); EOSINOPHIL % 0 % (0-5); MEAN CORPUSCULAR HGB 32.4 PG (27.0-31.0); MEAN CORPUSCULAR HGB CONC 32.2 G/DL (33.0-37.0); MEAN CORPUSCULAR VOLUME 100.7 FL (81.0-99.0); RBC DISTRIBUTION WIDTH 21.5 % (11.5-14.5); RED BLOOD CELL CT 3.38 /CUMM (4.20-5.40); WHITE BLOOD CELL COUNT 10.1 /CUMM (4.8-10.8)
[2018-01-29 08:17] VITALS: BP 148/70
[2018-01-29 08:20] VITALS: BP 148/70
--- NOTE | 2018-01-29 08:35 | Patient Discharge Instructions ---
Discharge Instructions General Discharge Information You were seen/treated for: Mechanical Fall Special Instructions: Please follow up with your PCP within one week of discharge. Diet Continue normal diet: Yes Activity Full Activity/No Limits: Yes Activity Self Limited: Yes Acute Coronary Syndrome Inclusion Criteria At DC or during hospital stay patient has or had the following: ACS DIAGNOSIS No Discharge Core Measures Meds if any: Prescribed or Continued at Discharge Meds if any: NOT Prescribed or Continued at Discharge Congestive Heart Failure Inclusion Criteria At DC or during hospital stay patient has or had the following: CHF DIAGNOSIS No Discharge Core Measures Meds if any: Prescribed or Continued at Discharge Meds if any: NOT Prescribed or Continued at Discharge Cerebrovascular accident Inclusion Criteria At DC or during hospital stay patient has or had the following: CVA/TIA Diagnosis No Discharge Core Measures Meds if any: Prescribed or Continued at Discharge Meds if any: NOT Prescribed or Continued at Discharge Venous thromboembolism Inclusion Criteria VTE Diagnosis No VTE Type NONE VTE Confirmed by (Test) NONE Discharge Core Measures - Per Current guidelines, there needs to be overlap - treatment for the first 5 days of Warfarin therapy. - If discharged on Warfarin prior to 5 days of - overlap therapy, the patient will need to be - assessed for post discharge needs including - *Post discharge parental anticoagulation - *Warfarin and/or parental anticoagulation education - *Follow up date to check INR post discharge At least 5 days overlap therapy as Inpatient No Meds if any: Prescribed or Continued at Discharge Note: Overlap Therapy is Warfarin and Anticoagulant Meds if any: NOT Prescribed or Continued at Discharge
[2018-01-29 09:17] LABS: GRANULOCYTE % 83.9 % (42.2-75.2); PLATELET COUNT 777 /CUMM (130-400)
--- NOTE | 2018-01-29 10:07 | ECHOCARDIOGRAM REPORT ---
DANNA MADRID Age: 87 : 1930 Gender: F Exam Date: 01/28/2018 13:55 Exam Location: 1 [address] Ht (in): 66 Wt (lb): 133 BSA: 1.68 BP: 128 / 68 Ordering Physician: Ilya Morse MD Referring Physician: Vimal White M.D. Technologist: Miranda Santo RDCS Room Number: [id number] Indications: AFIB/FLUTTER Rhythm: Technical Quality: Fair FINDINGS Left Ventricle Normal global left ventricular size, wall thickness, systolic function with no obvious regional wall motion abnormalities. Left ventricular ejection fraction is estimated at 55 %. Right Ventricle Mild right ventricular dilatation. Normal right ventricular global systolic function. Right Atrium Mild right atrial dilatation. Left Atrium Mild left atrial dilatation. Mitral Valve Mild mitral annular calcification. Moderate mitral regurgitation. Aortic Valve No aortic stenosis. Trileaflet aortic valve. Tricuspid Valve Structurally normal tricuspid valve. Moderate tricuspid regurgitation. Right ventricular systolic pressure estimated to be elevated at > 70 mmHg. Severe pulmonary hypertension. Pulmonic Valve Pulmonic valve not well visualized, grossly normal. Pericardium No pericardial effusion. Great Vessels Normal size aortic root. CONCLUSIONS Normal global left ventricular size, wall thickness, systolic function with no obvious regional wall motion abnormalities. Left ventricular ejection fraction is estimated at 55 %. Mild right ventricular dilatation. Normal right ventricular global systolic function. Mild right atrial dilatation. Mild left atrial dilatation. Moderate mitral regurgitation. Moderate tricuspid regurgitation. Right ventricular systolic pressure estimated to be elevated at > 70 mmHg. Severe pulmonary hypertension. Bj Garrido M.D. (Electronically Signed) Final Date: 29 Jan 2018 10:06 MEASUREMENTS (Male / Female) Normal Values 2D ECHO LV Diastolic Diameter PLAX 4.4 cm 4.2 - 5.9 / 3.9 - 5.3 cm LV Systolic Diameter PLAX 2.8 cm 2.1 - 4.0 cm LV Fractional Shortening PLAX 36.4 % 25 - 46 % LV Ejection Fraction 2D Teich 66.3 % IVS Diastolic Thickness 1.0 cm LVPW Diastolic Thickness 1.1 cm LV Relative Wall Thickness 0.5 RV Internal Dim ED PLAX 3.2 cm 1.9 - 3.8 cm LVOT Diameter 1.9 cm Aortic Root Diameter 3.0 cm LA Systolic Diameter LX 4.3 cm 3.0 - 4.0 / 2.7 - 3.8 cm LA Volume 41.0 cm 18 - 58 / 22 - 52 cm Ascending Aorta Diameter 3.3 cm DOPPLER AV Peak Velocity 127.0 cm/s AV Peak Gradient 6.5 mmHg AV Mean Velocity 86.2 cm/s AV Mean Gradient 3.0 mmHg AV Velocity Time Integral 30.3 cm LVOT Peak Velocity 69.2 cm/s LVOT Peak Gradient 1.9 mmHg LVOT Mean Velocity 46.4 cm/s LVOT Mean Gradient 1.0 mmHg LVOT Velocity Time Integral 15.6 cm LVOT Stroke Volume 44.2 cm AV Area Cont Eq vti 1.5 cm AV Area Cont Eq pk 1.5 cm MV Peak Velocity 98.3 cm/s MV Peak Gradient 3.9 mmHg MV Mean Velocity 44.5 cm/s MV Mean Gradient 1.0 mmHg Mitral E Point Velocity 85.9 cm/s Mitral A Point Velocity 32.6 cm/s Mitral E to A Ratio 2.6 MV PHT Velocity 102.0 cm/s MV Deceleration [place] 403.0 cm/s MV Pressure Half Time 75.9 ms MV Area PHT 2.9 cm MV Deceleration Time 197.0 ms TR Peak Velocity 419.0 cm/s TR Peak Gradient 70.2 mmHg Right Atrial Pressure 5.0 mmHg Pulmonary Artery Systolic Pressu 75.2 mmHg Right Ventricular Systolic Press 75.2 mmHg PV Peak Velocity 89.6 cm/s PV Peak Gradient 3.2 mmHg PV Mean Velocity 50.5 cm/s PV Mean Gradient 1.0 mmHg PV Velocity Time Integral 18.3 cm LV E' Lateral Velocity 9.5 cm/s Mitral E to LV E' Lateral Ratio 9.1 LV E' Septal Velocity 5.6 cm/s Mitral E to LV E' Septal Ratio 15.4
[2018-01-29] MEDS ORDERED: METOPROLOL TART25 M1 PO (11:24)
--- NOTE | 2018-01-29 11:54 | PN- Cardiology ---
Subjective Subjective: Offers no new complaints this morning. Objective Vital Signs and I&Os Vital Signs Date Time Temp Pulse Resp B/P B/P Pulse O2 O2 Flow FiO2 Mean Ox Delivery Rate 01/29 0820 60 148/70 01/29 0817 60 148/70 01/29 0800 Room Air 01/29 0627 98.4 63 18 126/54 93 Room Air 01/28 2119 98.7 61 142/68 92 Room Air 01/28 2043 96 142/68 01/28 1502 98.8 65 18 138/62 94 Room Air 01/28 1252 61 136/66 Intake & Output 01/29 1600 01/29 0800 01/29 0000 01/28 1600 01/28 0800 01/28 0000 Intake Total 150 400 284 876 [id number] Output Total 400 Balance 150 400 450 -280 1000 Intake, IV 1000 Intake, Oral 150 400 450 120 Number 1 Bowel Movements Output, Urine 400 Patient 140 lb 133 lb Weight Weight Bed scale Bed scale Measurement Method Physical Exam: General: no apparent distress. Alert. Eyes: No obvious scleral icterus. HEENT: No jugular venous distention or abnormal jugular venous pulsations. Cardiovascular: Normal intensity S1/S2. 1 out of 6 systolic murmur Respiratory: Lungs clear to auscultation bilaterally. Abdomen: Soft, nontender with no guarding or rebound tenderness. Musculoskeletal: No clubbing or cyanosis noted Skin: warm Neurologic: No gross focal deficits noted. Lymph: No gross lymphadenopathy. Current Medications: Current Medications Sig/Wendy Start time Last Medication Dose Route Stop Time Status Admin Acetaminophen 650 MG Q6P PRN 01/28 0030 AC 01/29 PO 0403 Acetaminophen 1,000 MG Q6P PRN 01/28 0030 AC 01/28 IV 0937 Fluoxetine HCl 40 MG DAILY 01/28 09 AC 01/29 PO 0820 Metoprolol Tartrate 12.5 MG BID 01/28 1116 AC 01/29 PO 0820 Oxybutynin Chloride 5 MG DAILY 01/28 09 AC 01/29 PO 0820 Oxycodone HCl 5 MG Q12P PRN 01/28 1045 AC 01/28 PO 2204 Polyethylene Glycol 17 GM DAILY PRN 01/28 0030 AC PO Rivaroxaban 20 MG DAILY 01/28 0900 AC 01/29 PO 0820 Trazodone HCl 50 MG AT BEDTIME 01/28 2100 AC 05/13 PO 2040 Results Last 48 Hrs of Labs/Mics: Laboratory Tests 01/29/18 0610: Anion Gap 7, Estimated GFR > 60, BUN/Creatinine Ratio 28.0 H, CBC w Diff NO MAN DIFF REQ, RBC 3.38 L, MCV 100.7 H, MCH 32.4 H, MCHC 32.2 L, RDW 21.5 H, MPV 8.0, Gran % 83.9 H, Lymphocytes % 12.3 L, Monocytes % 3.4, Eosinophils % 0, Basophils % 0.4, Absolute Granulocytes 8.4 H, Absolute Lymphocytes 1.2, Absolute Monocytes 0.3, Absolute Eosinophils 0, Absolute Basophils 0 01/28/18 0710: Anion Gap 9, Estimated GFR > 60, BUN/Creatinine Ratio 32.0 H, Magnesium 1.8, CBC w Diff MAN DIFF ORDERED, RBC 3.55 L, MCV 99.4 H, MCH 32.7 H, MCHC 32.9 L , RDW 21.5 H, MPV 8.0, Gran % 83.1 H, Lymphocytes % 13.0 L, Monocytes % 3.7, Eosinophils % 0, Basophils % 0.2, Absolute Granulocytes 7.8 H, Segmented Neutrophils 78 H, Band Neutrophils 7 H, Absolute Lymphocytes 1.2, Lymphocytes 11 L, Monocytes 3, Absolute Monocytes 0.4, Absolute Eosinophils 0, Absolute Basophils 0, Metamyelocytes 1, Nucleated RBCs 1 H, Platelet Estimate INCREASED, Polychromasia 1+, Basophilic Stippling 1+, Anisocytosis 2+, Stomatocytes 1+ 01/28/18 0018: Magnesium 1.7, Troponin I 0.03 01/27/18 1815: Troponin I 0.02 01/27/18 1715: Urine Color YEL, Urine Clarity CLEAR, Urine pH 6.5, Ur Specific [place] 1.020, Urine Protein TRACE H, Urine Ketones NEG, Urine Nitrite NEG, Urine Bilirubin NEG, Urine Urobilinogen 1.0, Ur Leukocyte Esterase TRACE H, Ur Microscopic SEDIMENT EXAMINED, Urine WBC 10-15 H, Ur Epithelial Cells FEW, Urine Bacteria FEW H, Urine Mucus MANY H, Urine Hemoglobin NEG, Urine Glucose NEG 01/27/18 1425: Anion Gap 12, Estimated GFR > 60, BUN/Creatinine Ratio 30.0 H, Glucose 111 H, Calcium 8.9, Magnesium 1.9, Total Bilirubin 1.4 H, AST 22, ALT 22, Alkaline Phosphatase 69, Creatine Kinase < 20 L, Troponin I 0.03, Sqc-F-Pwlinzostwe Pept 5000 H, Total Protein 6.4, Albumin 3.7, Globulin 2.7, Albumin/Globulin Ratio 1.4, Vitamin B12 > 1000 H, Free T4 1.37, Total T3 1.45, TSH &T3 &Free T4 Intrp 1.130, D-Dimer High Sensitivty 1747 H, CBC w Diff MAN DIFF ORDERED, RBC 4.22, MCV 98.7, MCH 32.2 H, MCHC 32.7 L, RDW 20.8 H, MPV 7.9, Gran % 82.0 H, Lymphocytes % 11.4 L, Monocytes % 6.2, Eosinophils % 0, Basophils % 0.4, Absolute Granulocytes 11.0 H, Segmented Neutrophils 72, Band Neutrophils 7 H, Absolute Lymphocytes 1.5, Lymphocytes 11 L, Monocytes 10 H, Absolute Monocytes 0.8 H, Absolute Eosinophils 0, Absolute Basophils 0.1, Platelet Estimate INCREASED, Polychromasia 1+, Basophilic Stippling 1+, Anisocytosis 2+, Stomatocytes 1+ Microbiology 01/27 1715 URINE ROUT: Urine Culture - COMP Recent Imaging Studies: Telemetry has been discontinued CTA: IMPRESSION: No CT evidence of acute or chronic pulmonary emboli. Normal global left ventricular size, wall thickness, systolic function with no obvious regional wall motion abnormalities. Left ventricular ejection fraction is estimated at 55 %. Mild right ventricular dilatation. Normal right ventricular global systolic function. Mild right atrial dilatation. Mild left atrial dilatation. Moderate mitral regurgitation. Moderate tricuspid regurgitation. Right ventricular systolic pressure estimated to be elevated at > 70 mmHg. Severe pulmonary hypertension. Bj Garrido M.D. (Electronically Signed) Final Date: 29 Jan 2018 10:06 Assessment/Plan Assessment/Plan 1. Paroxysmal atrial for ablation on Xarelto 2. Fibromyalgia 3. Hyperlipidemia 4. Status post mechanical fall 5. Pulmonary hypertension by echo Patient has known paroxysmal atrial fibrillation. Continue on the current beta- ashlyn dose. Continue on daily Xarelto. Maximize fall precautions. 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 Demetri Garrido MD [facility] Continue telemetry? Not applicable
--- NOTE | 2018-01-29 13:13 | Discharge Summary ---
Visit Information Visit Dates Admission Date: 01/27/18 Discharge Date: 01/29/18 Hospital Course Course Attending Physician: Terry Oconnor MD [facility]: Ms Bliss is a 87 years old female with past medical history of A. fib on Xarelto, hyperlipidemia, fibromyalgia, depression and hearing impairment who was brought in to the ED for evaluation after a fall. When the patient arrived to the ED she was found to have A. fib with RVR, heart rate was in the 120, she received metoprolol 25 p.o. and 5 mg IV after which she converted to NSR Below is a list of problems that were addressed during her hospital stay. Fall A.fib with conversion to NSR Patient was admitted to the telemetry floor for monitoring of arrhythmias. ACS was ruled out with 3 sets of negative troponins and EKGs. She maintained her sinus rhythm during her brief stay. Her Xarelto was continued. We added Metoprolol 12.5mg BID to her regimen. She had an echo which showed normal LV systolic dysfunction but did reveal severe pulmonary hypertension. 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 She received physical therapy and was recommended home physical therapy. She had a brief but uneventful hospital course. She was discharged in stable disposition. Allergies: Coded Allergies: NO KNOWN ALLERGIES (06/03/12) Significant Procedures: SERVICE DATE: 01/28/18 EXAM TYPE: CARD - ECHOCARDIOGRAM FINDINGS Left Ventricle Normal global left ventricular size, wall thickness, systolic function with no obvious regional wall motion abnormalities. Left ventricular ejection fraction is estimated at 55 %. Right Ventricle Mild right ventricular dilatation. Normal right ventricular global systolic function. Right Atrium Mild right atrial dilatation. Left Atrium Mild left atrial dilatation. Mitral Valve Mild mitral annular calcification. Moderate mitral regurgitation. Aortic Valve No aortic stenosis. Trileaflet aortic valve. Tricuspid Valve Structurally normal tricuspid valve. Moderate tricuspid regurgitation. Right ventricular systolic pressure estimated to be elevated at > 70 mmHg. Severe pulmonary hypertension. Pulmonic Valve Pulmonic valve not well visualized, grossly normal. Pericardium No pericardial effusion. Great Vessels Normal size aortic root. CONCLUSIONS Normal global left ventricular size, wall thickness, systolic function with no obvious regional wall motion abnormalities. Left ventricular ejection fraction is estimated at 55 %. Mild right ventricular dilatation. Normal right ventricular global systolic function. Mild right atrial dilatation. Mild left atrial dilatation. Moderate mitral regurgitation. Moderate tricuspid regurgitation. Right ventricular systolic pressure estimated to be elevated at > 70 mmHg. Severe pulmonary hypertension. SERVICE DATE: 01/27/18 EXAM TYPE: CAT - CT CERV SPINE WO IV CONTRAST; CT HEAD WO IV CONTRAST FINDINGS: CT head: There is no intracranial hemorrhage, extra-axial collection, or calvarial fracture. There is no mass, mass effect, or CT evidence of large territory infarction. There is mild scattered hypoattenuation in the bilateral cerebral white matter, which is nonspecific but likely reflects small vessel disease. There is mild diffuse brain parenchymal volume loss with prominence of the ventricles and sulci. The visualized paranasal sinuses are clear. The mastoids and middle ear cavities are clear. CT cervical spine: There is grade 1 anterolisthesis of C2 on C3 with alignment otherwise maintained. The craniovertebral junction is intact. No cervical spine fracture is seen. There is multilevel intervertebral disc height loss, endplate spurring, and uncovertebral and facet arthropathy. Disc height loss is greatest at C4-C5, C5-C6, and C6-C7. There is a prominent disc osteophyte complex at C5-C6 which results in mild spinal canal stenosis. There is severe neural foraminal stenosis on the left at C4-C5 and on the right at C5-C6 with lesser stenosis present at additional levels. There is pleural-parenchymal thickening at the bilateral lung apices and mild interlobular septal thickening. There is no consolidation or mass. There is scattered air within the venous circulation which is likely related to venipuncture. The extraspinal soft tissues are within normal limits. IMPRESSION: CT head: No acute intracranial abnormality. CT cervical spine: No cervical spine fracture, malalignment. Multilevel degenerative spondylotic changes as above. SERVICE DATE: 01/27/18 EXAM TYPE: RAD - XRY-FOOT COMPLETE, LEFT; XRY-TWO VIEW LEFT ANKLE FINDINGS: Ankle: There is no evidence of acute fracture. Alignment remains anatomic. Foot: There is no evidence of acute fracture. Alignment remains anatomic. There is degenerative chronic loss of normal articular cartilage space at the second through fifth PIP and DIP joints. IMPRESSION: No evidence of acute fracture or dislocation involving the left ankle or foot. SERVICE DATE: 01/27/18 EXAM TYPE: CAT - CT ABD & PELVIS W/O IV CONTRAS; CT CHEST WO IV CONTRAST FINDINGS: LUNG/PLEURA: The central airways are patent. There is no consolidation or mass. No suspicious pulmonary nodules are seen. There is pleural-parenchymal thickening at the lung apices. No pleural effusion or pneumothorax. There are chronic interstitial changes in the right upper lobe and right middle lobe noting bronchiolectasis and prominent interstitial markings. There is subsegmental atelectasis at both lung bases and mild lower lobe bronchiolectasis. A few nonspecific scattered groundglass opacities are also noted. MEDIASTINUM: The heart is mildly enlarged. No suspicious hilar or mediastinal lymphadenopathy. CHEST WALL/AXILLA: Unremarkable. LIVER, GALLBLADDER, AND BILIARY TREE: The liver is normal in size, shape, and attenuation. No focal hepatic lesion or biliary ductal dilatation is present. Gallbladder is contracted. No inflammatory pericholecystic changes are seen. PANCREAS: Unremarkable. SPLEEN: Unremarkable. ADRENAL GLANDS: Unremarkable. KIDNEYS AND URETERS: The kidneys are normal in size, shape, and attenuation. The previously suspected renal cysts are not well defined. No hydronephrosis, hydroureter, or calculi seen. No perinephric stranding. BLADDER: Unremarkable. GASTROINTESTINAL TRACT: The small and large bowel are unremarkable. The appendix is not well seen but there are no inflammatory changes in the right lower quadrant. ABDOMINAL WALL: There is a small fat and bowel-containing [place] ventral abdominal hernia. There is a surgical scar in the midline ventral abdomen. LYMPH NODES: Normal. VASCULAR: Atheromatous changes in the abdominal aorta and its branch vessels. There are surgical clips in the right periaortic region. And in the right inguinal region. PELVIC VISCERA: Status post hysterectomy. No pelvic mass. OSSEOUS STRUCTURES: There is a chronic appearing severe compression fracture at T9 with greater than 80% height loss and mild retropulsion of the osseous cortex causing mild encroachment on the spinal canal. There is a vacuum disc at the levels above and below the fracture at T8-T9 and T9-T10. An additional chronic appearing compression fracture is present at T12 with 60% height loss and mild retropulsion causing mild encroachment on the spinal canal. No acute appearing compression fracture is seen in the thoracic or lumbar spine. There is a healed right sided lateral fifth rib fracture. IMPRESSION: - No acute thoracic spine fracture. - Chronic appearing fracture at T9 with greater than 80% height loss and at T12 with 60% height loss. There is mild retropulsion at both levels causing mild encroachment on the spinal canal. - No acute traumatic abnormality in the chest, abdomen, or pelvis. Disposition Summary Disposition Principal Diagnosis: Mechanical Fall Additional Diagnosis: Atrial fibrilliation hyperlipidemia fibromyalgia depression Discharge Disposition: home health services Discharge Instructions General Discharge Information Code Status: Full Code Patient's Diet: Regular Patient's Activity: As tolerated Follow-Up Instructions/Appts: Please follow up with your PCP within one week of discharge. Medications at Discharge Discharge Medications: Continue taking these medications: Solifenacin Succinate (Vesicare) 5 MG TABLET 1 Tablet ORAL DAILY Qty = 30 Comments: NOT GIVEN IN HOSPITAL. PT GIVEN DITROPAN. Trazodone HCl (Trazodone HCl) 50 MG TABLET 2 Tablet ORAL Every night Qty = 60 Comments: Last Taken: 01/28/18 Time: 9PM Rivaroxaban (Xarelto) 20 MG TABLET 1 Tablet ORAL Every night Qty = 30 Instructions: with food Comments: Last Taken: 01/29/18 Time: 9AM Fluoxetine HCl (Fluoxetine HCl) 40 MG CAPSULE 1 Capsule ORAL Every Morning Qty = 30 Comments: Last Taken: 01/29/18 Time: 9AM Oxycodone HCl (Oxycodone HCl) 5 MG TABLET 1 Tablet ORAL 2 x Daily as needed as needed for PAIN Qty = 90 Comments: Last Taken: 01/27/18 Time: 5PM Start taking the following new medications: Metoprolol Tartrate (Metoprolol Tartrate) 25 MG TABLET 0.5 Tablet ORAL TWICE DAILY Qty = 30 No Refills Comments: Last Taken: 01/29/18 Time: 9AM Copies To: Bandar Rosales MD Attending MD Review Statement Documenting Attending: Terry Oconnor MD Copies To: Bandar Rosales MD
== END 2018-01-29 12:00 | disposition home health service (06) | DRG 310 ==
LOC: ERH 13:52 → 1NO 19:29 → ERHI 19:29 → ENRESERV 21:16 → ENTRNSPT 22:39 → EDTRNSPTSTS 22:44 → 1NO 22:57 → CMPTRNSPT 01-28 07:05 → 1NO 01-29 07:27 → ENPENDDIS 01-29 10:12 → ENTRNSPT 01-29 11:46 → EDTRNSPTSTS 01-29 11:55 → EDTRNSPT 01-29 11:55 → 1NO 01-29 12:00 → CMPTRNSPT 01-29 12:29
PROVIDERS: Internal Medicine; Physician Assistant Medical; Student in an Organized Health Care Education/Training Program
DX: I48.0 Paroxysmal atrial fibrillation (principal); I27.20 Pulmonary hypertension, unspecified; Z79.01 Long term (current) use of anticoagulants; D72.829 Elevated white blood cell count, unspecified; D47.3 Essential (hemorrhagic) thrombocythemia; M79.7 Fibromyalgia; F32.9 Major depressive disorder, single episode, unspecified; H91.90 Unspecified hearing loss, unspecified ear; W18.30XA Fall on same level, unspecified, initial encounter; Z91.81 History of falling; Y92.009 Unspecified place in unspecified non-institutional (private) residence as the place of occurrence of the external cause; E78.5 Hyperlipidemia, unspecified; I44.0 Atrioventricular block, first degree
CPT/HCPCS: 1NP; 36415; 36592; 73600-LT; 73630-LT; 74176; 81001; 82436; 87040; 87086; 93005; 93010; 93306; 97110-GO; 97112-GO; 97116-GO; 97161-GP; 97530-GO; J0131; J0696; J3490

== ENCOUNTER 2018-04-28 10:59 | Emergency (ER) | payer OTHER, MEDICARE ==
[~2018-04-28] VITALS: Ht 167.6 cm; Wt 59.0 kg
[~2018-04-28 10:59] MED LIST changes: +METOPROLOL TART25 M1 PO
--- NOTE | 2018-04-28 11:07 | ED GENERAL ADULT ---
History of Present Illness General Chief Complaint: Fall Stated Complaint: FALL W/ HEAD PAIN Source: patient, EMS Exam Limitations: no limitations Vital Signs & Intake/Output Vital Signs & Intake/Output Vital Signs Date Time Temp Pulse Resp B/P B/P Pulse O2 O2 Flow FiO2 Mean Ox Delivery Rate 04/28 1436 97 Room Air 04/28 1316 98.5 75 20 155/65 98 Room Air 04/28 1110 98.4 52 18 162/77 97 Room Air Allergies Coded Allergies: NO KNOWN ALLERGIES (06/03/12) Reconcile Medications Fluoxetine HCl 40 MG CAPSULE 1 CAP PO QAM MENTAL HEALTH (Reported) Metoprolol Tartrate 25 MG TABLET 0.5 TAB PO BID Heart Health Oxycodone HCl 5 MG TABLET 1 TAB PO BIDP PRN PAIN (Reported) Rivaroxaban (Xarelto) 20 MG TABLET 1 TAB PO QPM BLOOD THINNER (Reported) with food Solifenacin Succinate (Vesicare) 5 MG TABLET 1 TAB PO DAILY BLADDER (Reported ) Trazodone HCl 50 MG TABLET 2 TAB PO QPM SLEEP (Reported) Triage Nurses Notes Reviewed? yes HPI: This is an 87-year-old female with history of A. fib on Xarelto presenting to the emergency department after falling at home, striking the back of her head on the carpeted floor. Patient states that her "knees buckled" and she fell, landing on her knees and then backwards to her carpeted floor, striking her head. She denies any loss of consciousness although the fall was unwitnessed. She denies any recent illness or injury. She has had no recent travel. She endorses mild headache, denies neck pain, dizziness, visual changes, nausea or vomiting. She denies any chest pain or shortness of breath, fever, chills, abdominal pain. Of note, this is the patient's fourth visit to the emergency department in the last 2 years for falls, her second visit in the last few months. She lives in an assisted living facility where she does not have daily healthcare interaction. She states that she sometimes forgets to take her medicines or "gets confused," but describes this as a relatively rare event. She states that her only family is her son, who lives in [facility]. She presents alert and oriented, no focal neurologic deficits, reports being able to take care of all of her own activities of daily living. She uses a walker. (Juan F Mcclain MD) Past History Travel History Traveled to [place] past 21 day No Medical History Any Pertinent Medical History? see below for history Cardiovascular: AFIB Musculoskeletal: SPINE FX History of MRSA: No History of VRE: No History of CDIFF: No Surgical History Surgical History: non-contributory Psychosocial History Who do you live with Spouse Services at Home None What is your primary language Spanish Family History Hx Contributory? No (Juan F Mcclain MD) Review of Systems Review of Systems Constitutional: Reports: no symptoms. Denies: see HPI, chills, diaphoresis, fever, malaise, weakness, unexplained weight loss. EENTM: Reports: no symptoms. Respiratory: Reports: no symptoms. Cardiovascular: Reports: no symptoms. GI: Reports: no symptoms. Genitourinary: Reports: no symptoms. Musculoskeletal: Reports: no symptoms. Skin: Reports: no symptoms. Neurological/Psychological: Reports: no symptoms. Hematologic/Endocrine: Reports: no symptoms. Immunologic/Allergic: Reports: no symptoms. (Juan F Mcclain MD) Physical Exam Physical Exam General Appearance: well developed/nourished, no apparent distress, alert, awake , comfortable Head: atraumatic, normal appearance Eyes: Bilateral: normal appearance. Ears, Nose, Throat: normal pharynx, normal ENT inspection Neck: normal inspection, supple, full range of motion, no midline tenderness Respiratory: normal breath sounds, chest non-tender, no respiratory distress Cardiovascular: normal peripheral pulses Gastrointestinal: normal bowel sounds, soft, non-tender Back: normal inspection, normal range of motion Extremities: normal inspection, normal capillary refill, normal range of motion, no edema Neurologic/Psych: no motor/sensory deficits, awake, alert, oriented x 3, normal mood/affect Skin: intact, normal color, warm/dry Core Measures ACS in differential dx? No CVA/TIA Diagnosis: No Sepsis Present: No Sepsis Focused Exam Completed? No (Juan F Mcclain MD) Progress Differential Diagnoses I considered the following diagnoses in my evaluation of the patient: ICH, occult spinal injury, low suspicion for acute thoracicoabdominal trauma. Low suspicion for infection at this time given lack of suggestive symptoms such as dysuria, frequency, chest pain, shortness of breath, fever, chills, change in appetite, weakness. Low suspicion also for metabolic derangement given good appetite, benign exam, reassuring vital signs. Plan of Care: Orders Procedure Date/time Status Regular Diet 04/28 D Active Vital Signs 04/28 1142 Active Plan for CAT scan head, cervical spine, reassessment, will recheck the patient's primary doctor regarding patient's use of Xarelto for atrial fibrillation in the setting of her recent falls. The risk-benefit analysis is complicated in this case, and I would like to discuss the benefits and risks moving forward. The on -call physician, Dr. Mitch Harmon, familiar with . Letty Bliss but will communicate to my concerns to Dr Rosales, her primary doctor. Case management is consulted on this case. With the help of [place], we are able to establish in-home services for Letty. CAT scan shows no acute findings. Gait and stability are reassessed in the emergency department. She is able to ambulate without difficulty and has no new complaints. She eats lunch, is discharged home with plan to follow-up with her outpatient provider. Return precautions are provided Initial ED EKG: none (Johny FRANZ,Juan F) Departure Departure Time of Disposition: 1231 Disposition: HOME OR SELF CARE Condition: Stable Clinical Impression Primary Impression: Fall at home Referrals: Bandar Rosales MD (PCP/Family) Additional Instructions: Thank you for coming to [place] emergency department today. As we discussed, I have reached out to your primary doctor and have recommended that your home medication Xarelto potentially be stopped given the risks of fall and injury. This is a discussion needed to have with your doctor, is not easy to make because there are benefits to the Xarelto and possible risks to stopping. Additionally, we are trying to get your in-home services to help with your safety. Please call [phone] if you develop any new or concerning symptoms such as dizziness, headache, chest pain, shortness of breath, abdominal pain, or any other concerning symptoms. Departure Forms: Customer Survey General Discharge Information (Juan F Mcclain MD) Resident Co-Sign Statement Statement: ED Attending supervision documentation- [] I saw and evaluated the patient. I have also reviewed all the pertinent lab results and diagnostic results. I agree with the findings and the plan of care as documented in the Resident's documentation. [X] I have reviewed the ED Record and agree with the Resident's documentation. [] Additions or exceptions (if any) to the Resident's note and plan are summarized below: [] (Eliud FRANZ,Fercho Srivastava) Critical Care Note Critical Care Note Critical Care Time: non-applicable (Johny FRANZ,Juan F)
--- NOTE | 2018-04-28 12:16 | CT SCAN REPORT ---
EXAMINATION: EXAMINATION: CT OF THE HEAD WITHOUT CONTRAST CT OF THE CERVICAL SPINE WITHOUT CONTRAST CLINICAL INFORMATION: Headache. Fall on DOAC (direct oral anticoagulant). COMPARISON: CT scan of the head and cervical spine dated 01/27/2018 and 04/03/2017. TECHNIQUE: Contiguous axial imaging was performed from the skullbase to vertex without intravenous administration of contrast. Coronal reformations of the head were obtained. Contiguous axial imaging was then performed from the skull base down to the thoracic inlet. Coronal and sagittal reformations of the cervical spine were obtained. DLP: 817.35 mGy-cm. FINDINGS: CT scan of the head: Evaluation is limited due to motion artifact. There is no evidence of acute intracranial hemorrhage or territorial infarction. No abnormal mass-effect or midline shift is seen. Nuñez to white matter differentiation is well preserved. No extra-axial fluid collections are identified. The ventricles and sulci are enlarged, consistent with involutional changes. There is diffuse mild periventricular deep white matter low-attenuation, consistent with ischemic small vessel disease. The osseous structures and soft tissues are normal. The mastoid air cells and visualized portions of the paranasal sinuses are well-aerated. CT scan of the cervical spine: Evaluation is limited due to motion artifact. Chronic grade 1 anterolistheses of C2 on C3 is again seen, unchanged. Cervical spine alignment alignment is otherwise maintained with no evidence of acute fracture or dislocation. Craniocervical junction and atlantoaxial articulations are intact. Prevertebral soft tissues are normal in thickness. There is moderate degenerative change at the atlantoaxial articulation. There is moderate to severe degenerative disc disease with disc space narrowing, vertebral endplate spurring and cystic changes seen from C4-5 down to C6-7 with associated small posterior disc osteophyte complexes seen projecting into the thecal sac, unchanged. There is resultant mild spinal stenosis at C5-6 and C6-7. Mild degenerative disc disease is seen at C3-4. Multilevel neuroforaminal stenosis is seen related to facet arthropathy and uncovertebral spurring, most severe on the left C4-5 and right C5-6 levels. The included soft tissues of the neck are unremarkable. There has been interval development of bilateral posterior layering pleural effusions, new from 01/27/2018. Biapical irregular pleural-based reticular nodular opacity remains similar to prior study, likely representing scarring. Evaluation is limited by motion artifact. IMPRESSION: CT scan of the head: No acute intracranial pathology. Mild involutional changes and findings of chronic ischemic small vessel disease. CT scan of the cervical spine: No evidence of cervical spine fracture or malalignment. Multilevel moderate to severe degenerative disc disease and facet arthropathy, similar to prior exam.
[2018-04-28 13:16] VITALS: BP 155/65
== END 2018-04-28 14:37 ==
LOC: ERH 10:59
DX: S09.90XA Unspecified injury of head, initial encounter (principal); W19.XXXA Unspecified fall, initial encounter; Y92.009 Unspecified place in unspecified non-institutional (private) residence as the place of occurrence of the external cause; Y93.9 Activity, unspecified